=== PATIENT | female | born 1985 | race African-American/Black ===

== ENCOUNTER 2019-05-09 14:30 | Inpatient (IN) | payer BC ==
[~2019-05-09] VITALS: Ht 162.6 cm; Wt 78.5 kg
--- NOTE | 2019-05-09 14:44 | NUR ---
CAME IN FOR RIGHT SIDED ABDOMINAL PAIN X1 HR, +NAUSEA, TO ER BED 10, HOOKED TO MONITOR, CHANGED TO HOSP GOWN, WARM BLANKET PROVIDED, PATIENT AOx4, BREATHING EVEN AND UNLABORED, DR AMEZCUA AT BEDSIDE
[2019-05-09] MEDS ORDERED: MORPHINE SULFATE INJ 2 MG/ML DISP.SYRIN IV ONE ×2 (15:00→16:00)
[2019-05-09] MEDS ORDERED: ONDANSETRON HCL/PF 4 MG/2 ML VIAL IVP ONE (15:00)
[2019-05-09] MEDS ORDERED: IV NS 0.9% 1,000 ML BAG IV ONE ×2 (15:00→17:00)
[2019-05-09] MEDS ORDERED: MORPHINE SULFATE INJ 2 MG/ML DISP.SYRIN ONE ×2 (15:01→15:52)
[2019-05-09] MEDS ORDERED: ONDANSETRON HCL/PF 4 MG/2 ML VIAL ONE ×2 (15:01→15:52)
[2019-05-09 15:06] LABS: BASOPHILS % (AUTO) 0.6 % (0.0-2.0); HEMATOCRIT 40 % (33-45); HEMOGLOBIN 12.8 g/dL (11.5-14.8); LYMPHOCYTES # (AUTO) 1.9 /CMM (0.8-4.8); LYMPHOCYTES % (AUTO) 32.7 % (20.0-44.0); MEAN CORPUSCULAR HGB CONC 32 g/dl (31.0-36.0); MEAN CORPUSCULAR VOLUME 83 fL (82-100); MONOCYTES # (AUTO) 0.3 /CMM (0.1-1.30); MONOCYTES % (AUTO) 5.6 % (2.0-12.0); NEUTROPHILS # (AUTO) 3.5 /CMM (1.8-8.9); NEUTROPHILS % (AUTO) 60.1 % (43.0-81.0); PLATELET COUNT (AUTO) 256 /CMM (150-450); RED BLOOD CELL COUNT(AUTO) 4.74 MIL/uL (4.0-5.2); WHITE BLOOD COUNT (AUTO) 5.9 K/uL (4.3-11.0)
[2019-05-09 15:19] LABS: ALBUMIN 3.4 g/dL (3.4-5.0); BILIRUBIN,DIRECT 0.1 mg/dL (0.0-0.2); BILIRUBIN,TOTAL 0.2 mg/dL (0.2-1.0); CALCIUM, SERUM 8.6 mg/dL (8.5-10.1); CREATININE 0.8 mg/dL (0.6-1.3); POTASSIUM 4.3 mmol/L (3.5-5.1); TOTAL PROTEIN, SERUM 7.6 g/dL (6.4-8.2)
[2019-05-09] MEDS ORDERED: KETOROLAC TROMETHAMINE 15 MG/ML VIAL ONE (15:55)
--- NOTE | 2019-05-09 15:59 | NUR ---
US TECH AT BEDSIDE
[2019-05-09] MEDS ORDERED: ONDANSETRON HCL/PF - ER 4 MG/2 ML VIAL IV ONE (16:00)
[2019-05-09] MEDS ORDERED: KETOROLAC TROMETHAMINE INJ 30 MG/ML VIAL IV ONE (16:00)
--- NOTE | 2019-05-09 17:13 | NUR ---
PATIENT STILL NOT ABLE TO PROVIDE URINE SAMPLE, MADE AWARE. OFFERED STRAIGHT CATH, PATIENT REFUSED
--- NOTE | 2019-05-09 18:00 | NUR ---
PAGED ALEXEI FOR CONSULT.
--- NOTE | 2019-05-09 18:27 | NUR ---
PAGED [facility].
--- NOTE | 2019-05-09 18:28 | NUR ---
CALLED NURSING SUP FOR M/S BED.
[2019-05-09] MEDS ORDERED: MAGNESIUM HYDROXIDE 30 ML UDC PO PRN (19:00)
[2019-05-09] MEDS ORDERED: ACETAMINOPHEN 325 MG TABLET PO PRN (19:00)
[2019-05-09] MEDS ORDERED: MAG HYDROX/AL HYDROX/SIMETH 30 ML UDC PO PRN (19:00)
[2019-05-09] MEDS ORDERED: ZOLPIDEM TARTRATE 5 MG TABLET PO PRN (19:00)
[2019-05-09] MEDS ORDERED: Z GUARD REMEDY 2 OZ OINT TP PRN (19:00)
--- NOTE | 2019-05-09 19:18 | NUR ---
REPORT GIVEN TO NEETU DESHPANDE FOR KERRY
--- NOTE | 2019-05-09 19:32 | NUR ---
REPORT RECEIVED FROM JERAMY GOOD FOR KERRY
--- NOTE | 2019-05-09 20:41 | NUR ---
REPORT GIVEN TOP CIERA DESHPANDE
--- NOTE | 2019-05-09 22:21 | NUR ---
PT TRANSPORTED TO ROOM IN STABLE CONDITION
[2019-05-09 22:44] VITALS: BP 118/68
--- NOTE | 2019-05-09 22:45 | NUR ---
RN ADMITTING NOTES RECEIVED REPORT FROM RESPITE PROVIDER JUNO. Pt ARRIVED TO THE FLOOR VIA ER GURNEY; Pt WAS IN TOO MUCH PAIN TO GET UP FROM THE BED AND WALK, BUT WAS ABLE TO SLIDE FROM ER GURNEY TO ROOM BED WITH SOME LITTLE ASSISTANCE BY STAFF. Pt IS A/OX4, VERBAL, ABLE TO MAKE NEEDS KNOWN. IV ACCESS ON LAC #20G. SAFETY MEASURES IN PLACE. BED LOW, LOCKED, HOB ELEVATED, SIDE RAILS UP, CALL LIGHT AND BEDSIDE TABLE WITHIN REACH. WILL CONTINUE TO MONITOR Pt
--- NOTE | 2019-05-09 23:00 | NUR ---
RN NOTES Pt WAS IN TOO MUCH PAIN TO MOVE TO ALLOW ME TO REMOVE HER PANTS AND DUE A PROPER SKIN ASSESSMENT OF PRIVATE AREAS, SO Pt REFUSED. BUT Pt DID ALLOW TO DO A SKIN ASSESSMENT OF THE ARMS AND FEET; NO SIGNS OF SKIN TEAR OR WOUNDS NOTED ON THE ARMS AND FEET. PER Pt STATEMENT HAS NO WOUNDS OR SKIN TEARS ON HER BODY.
[2019-05-09] MEDS: IV NS 0.9% 1,000 ML IV PRN (23:17)
[2019-05-09] MEDS: MORPHINE SULFATE INJ 2 MG/ML DISP.SYRIN IV PRN (23:18)
[2019-05-09] MEDS: ONDANSETRON HCL/PF 4 MG/2 ML VIAL IVP PRN (23:18)
--- NOTE | 2019-05-10 03:30 | NUR ---
RN NOTES INFORMED CELL ASSEMBLY PINNER HOSPITALIST DR NOLAN OF Pt RETAINING URINE OF >500CC PER BLADDER SCANNER RESULT. GAVE X1 ORDER OF IN & OUT STRAIGHT CATH. PLACED ORDER. ABOUT 800CC OF URINE OUTPUT. COLLECTED URINE SAMPLE AND PLACED IN SPECIMEN FRIDGE.
[2019-05-10 04:00] VITALS: BP 113/63
[2019-05-10] MEDS: ONDANSETRON HCL/PF 4 MG/2 ML VIAL IVP PRN (04:26)
[2019-05-10] MEDS: MORPHINE SULFATE INJ 2 MG/ML DISP.SYRIN IV PRN (04:48)
[2019-05-10 06:20] LABS: APPEARANCE,URINE SL CLOUDY (CLEAR); BILIRUBIN,URINE NEGATIVE (NEGATIVE); BLOOD, URINE NEGATIVE Ery/uL (NEGATIVE); COLOR,URINE YELLOW (YELLOW); KETONES,URINE NEGATIVE (NEGATIVE); LEUKOCYTE ESTERASE ,URINE NEGATIVE (NEGATIVE); NITRITE, URINE NEGATIVE (NEGATIVE); PH,URINE 6.5 (5.0-8.0); PROTEIN,URINE NEGATIVE (NEGATIVE); UGLUCOSE NEGATIVE (NEGATIVE); UROBILINOGEN,URINE 0.2 EU/dL (0.2)
--- NOTE | 2019-05-10 06:45 | NUR ---
RN CLOSING NOTES NO S/S OF ACUTE DISTRESS OR SOB NOTED DURING THE NIGHT. NO S/S OF ACUTE DISTRESS OR SOB NOTED DURING THE NIGHT. ALL NEEDS MET AND ATTENDED TO. SAFETY MEASURES IN PLACE. WILL ENDORSE TO DAYSHIFT RN FOR Pt's KERRY.
[2019-05-10 06:54] LABS: BASOPHILS % (AUTO) 0.2 % (0.0-2.0); EOSINOPHILS % (AUTO) 0.1 % (0.0-6.0); HEMATOCRIT 31 % (33-45); LYMPHOCYTES % (AUTO) 20.5 % (20.0-44.0); MEAN CORPUSCULAR HGB CONC 32 g/dl (31.0-36.0); MEAN CORPUSCULAR VOLUME 84 fL (82-100); MONOCYTES # (AUTO) 0.6 /CMM (0.1-1.30); MONOCYTES % (AUTO) 6.2 % (2.0-12.0); NEUTROPHILS # (AUTO) 7.1 /CMM (1.8-8.9); PLATELET COUNT (AUTO) 206 /CMM (150-450); WHITE BLOOD COUNT (AUTO) 9.7 K/uL (4.3-11.0)
[2019-05-10 07:13] LABS: CALCIUM, SERUM 7.5 mg/dL (8.5-10.1); CREATININE 0.9 mg/dL (0.6-1.3); MAGNESIUM 1.8 mg/dL (1.8-2.4); PHOSPHORUS 3.1 mg/dL (2.5-4.9); POTASSIUM 3.8 mmol/L (3.5-5.1)
--- NOTE | 2019-05-10 07:15 | NUR ---
RN OPENING NOTES RECEIVED PATIE T IN BED RESTING. A/OX4, ABLE TO MAKE NEEDS KNOWN. NOT IN NAY FORM OF DISTRESS, NO SOB. DENIED PAIN OR DISCOMFORT AT THIS TIME. IV ACCESS INTACT AND PATENT. KEPT PATIENT SAFE AND COMFORTABLE. BED IN LOW/LOCKED POSITION, SIDERAILS UPX2, CALL LIGHT IN REACH. WILL CONT TO MONITOR ACCORDINGLY.
[2019-05-10 08:00] VITALS: BP 102/56
--- NOTE | 2019-05-10 09:00 | NUR ---
rn notes patient in stable condition. endorsed to JERAMY MURPHY
--- NOTE | 2019-05-10 09:45 | NUR ---
RN Notes Relieved patient from Ankur DESHPANDE after start of shift. No medications or baseline assessment charted. Patient currently in stable condition alert and oriented x4. Pending OB consult later in day for possible ruptured ectopic .
--- NOTE | 2019-05-10 10:00 | NUR ---
MS RN Notes Spoke to pharmacy regarding change of IV Synthroid to PO. Dose was 100mcg IVP. Pharmacy to contact MD to clarify order.
--- NOTE | 2019-05-10 12:05 | NUR ---
RN OPENING NOTES ENDORSED BY RN KATHERINE, RECEIVED PATIENT IN BED, A/O X 4 VERBALLY RESPONSIVE AND ABLE TO MAKE NEEDS KNOWN. COMPLAINT OF PAIN BUT PATIENT REFUSED TO TAKE ANY PAIN RELIEVER. ON ROOM AIR, SATURATING WELL. NO SOB NOTED, IN NO APPARENT DISTRESS NOTED. IV ACCESS ON L AC #20 INTACT, PATENT AND FLUSHED WELL, WITH ON GOING NS 0.9 @ 75 ML /HR WITH REMAINING 50ML ON THE BAG. SAFETY MEASURES IN PLACE, BED IN LOWEST POSITIONED AND LOCKED, CALL LIGHT WITHIN REACH. WILL CONTINUE TO MONITOR
[2019-05-10] MEDS: IV NS 0.9% 1,000 ML IV PRN (12:19)
--- NOTE | 2019-05-10 12:45 | NUR ---
RN NOTES PATIENT STATED THAT SHE WANTED TO GO HOME AND SIGN AMA.
--- NOTE | 2019-05-10 12:51 | NUR ---
RN NOTES NOTIFIED DR SIM, THAT PATIENT WANTED TO GO AMA, PER MD NOT RECOMMENDED
--- NOTE | 2019-05-10 12:52 | NUR ---
RN NOTES PATIENT SIGNED THE AMA FORM AND DR SIM MADE AWARE
--- NOTE | 2019-05-10 14:05 | NUR ---
FIRST RESPONDER NOTES PATIENT DECIDED TO GO HOME AMA. EXPLAINED RISKS OF GOING AMA AND BENEFITS OF STAYING IN THE HOSPITAL BUT PATIENT STILL EAGER TO HOME. DISCHARGE PACKET PROVIDED, BELONGINGS RETURNED AND FORM WAS SIGNS. ACCOMPANIED BY RETAIL GREETING CARD MERCHANDISER TO THE HOSPITAL LOBBY.
== END 2019-05-10 14:05 | disposition left against medical advice (07) | DRG 391 ==
LOC: ER 14:30 → MEDSG1 20:11
PROVIDERS: ADMIT Internal Medicine; ATTEND Internal Medicine
DX: R19.00 Intra-abdominal and pelvic swelling, mass and lump, unspecified site (principal); K66.1 Hemoperitoneum; K65.9 Peritonitis, unspecified; D64.9 Anemia, unspecified
CPT/HCPCS: 36415; 76705-TC; 76856-TC; 80048-TC; 80076-TC; 81000-TC; 83690-TC; 83735-TC; 84100-TC; 84702-TC; 85025-TC; 87081-TC; G0378; J1885; J2270; J2405; J7030